=== PATIENT | female | born 1980 | race Caucasian/White ===

== ENCOUNTER → 2022-11-19 | Outpatient (CLI) | payer OTHER, SELFPAY ==
--- NOTE | 2022-11-19 | ASPS_PTH ---
PATIENT: MARV ARZOLA LOC: [facility] U#:[id number] AGE/SX: 42/F ROOM: RE11/19/[address]: Dr. 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 See comment. AM:yvette 11/21/2022 COMMENT The [place] System for thyroid diagnostic categorization was used in the evaluation of this case. Per recommendations and a clinician-approved plan (a call was made to the referring doctor about the recommendation), genomic testing (Afirma) has been submitted. Results will be reported as an addendum and faxed to clinician. CYTOLOGY STUDY Slides are reviewed. CYTOLOGY GROSS Received are eight smears labeled with the patient's name and designated per the requisition as left thyroid. Submitted for staining. / yvette 11/20/2022 TC:? CPT: 04986 ADDENDUM ADDENDUM ADDENDUM ADDENDUM ADDENDUM ADDENDUM ADDENDUM 01/06/2023 10:01 ADDENDUM 01/06/2023 10:01 ADDENDUM 01/06/2023 10:01 ADDENDUM 01/06/2023 10:01 ADDENDUM 01/06/2023 10:01 AFIRMA RESULTS REPORT RESULTS INTERPRETATION: The result of this 1.6 cm [place] III nodule A is Afirma GSC benign, which suggests a low risk of cancer of approximately 4%. Please see complete report in e-chart or EMR
== END | disposition home or self-care (01) ==
LOC: LABSPEC 15:38
PROVIDERS: PCP Physician Assistant; Referring Provider Surgery; Visit Provider Surgery
DX: E04.1 Nontoxic single thyroid nodule (principal)
CPT/HCPCS: 88161; 88313